=== PATIENT | male | born 1990 | race Two or more races ===

== ENCOUNTER 2019-02-03 09:53 | Inpatient (IN) | payer MEDICAID, OTHER ==
[~2019-02-03] VITALS: Ht 154.9 cm; Wt 63.1 kg
[2019-02-03] MEDS ORDERED: SODIUM CHLORIDE 0.9% 1,000 ML IVB ONE (12:10)
[2019-02-03] MEDS ORDERED: ONDANSETRON HCL 4 MG/2 ML VIAL IV ONE (12:45)
[2019-02-03 13:17] LABS: Magnesium 3.3 mg/dL (1.6-2.6)
[2019-02-03 13:20] LABS: Lactic Acid w/Reflex 5.2 mmol/L (0.4-2.0)
[2019-02-03 13:39] LABS: Basophils # (auto) 0.1 uL; Eosinophils # (auto) 0 uL; Lymphocytes # (auto) 1.1 uL; Monocytes % (auto) 4.5 % (0.0-12.0)
[2019-02-03 13:40] LABS: INR 0.96 (0.9-1.15); Prothrombin Time 10.3 sec (9.27-12.13)
[2019-02-03 13:41] LABS: Basophils % (auto) 0.3 % (0.0-2.0); Hematocrit 52.6 % (41.0-53.0); Hemoglobin 16.8 g/dL (13.5-17.5); Lymphocytes % (auto) 4.8 % (10.0-50.0); Mean Corpuscular Hgb Conc. 31.9 g/dL (32.0-36.0); Mean Corpuscular Volume 87.9 fL (80.0-100.0); Neutrophils # (auto) 19.9 uL; Neutrophils % (auto) 90.4 % (37.0-80.0); Nucleated Red Blood Cells % 0.1 %; Platelet Count (auto) 372 10^3/uL (140-450); Red Blood Cells 5.99 10^6/uL (4.5-5.90); Red Cell Distribution Width 14.5 % (11.8-14.3)
[2019-02-03 13:45] LABS: Urine Bacteria NONE SEEN /hpf (None Seen); Urine Blood TRACE /uL (Negative); Urine Mucus FEW (None Seen); Urine Specific Gravity 1.025 (1.001-1.035); Urine WBC 1 /hpf (0 - 3)
[2019-02-03 13:47] LABS: Calcium 9.1 mg/dL (8.5-10.1); Potassium 4.1 mmol/L (3.5-5.1)
[2019-02-03 13:54] LABS: Albumin 3.9 g/dL (3.4-5.0); BUN/Creatinine Ratio 15.5; Bilirubin, Total 0.8 mg/dL (0.2-1.0); Total Protein 8.9 g/dL (6.4-8.2)
[2019-02-03] MEDS ORDERED: cefTRIAXone 1GM/50ML D5W 50 ML IV ONE (14:00)
[2019-02-03] MEDS ORDERED: SODIUM CHLORIDE 0.9% 1,000 ML IV ONE ×2 (14:00)
[2019-02-03] MEDS ORDERED: InsuLIN R (HUMAN) 100 UNITS in SODIUM CHL 0.9% 99 ML IV SCH (14:05)
[2019-02-03] MEDS ORDERED: SODIUM BICARBONATE 8.4 % INJ 50ML VIAL IV ONE ×2 (14:15→17:45)
[2019-02-03] MEDS ORDERED: DEXTROSE (50%) 50ML SYRG IV PRN (14:15)
[2019-02-03 14:59] LABS: BUN/Creatinine Ratio 19.1; Calcium 7.8 mg/dL (8.5-10.1); Potassium 4.8 mmol/L (3.5-5.1)
[2019-02-03] MEDS: ACCU-CHEK COMFORT CURVE STRIP VI SCH ×6 (15:10→22:35)
[2019-02-03] MEDS: SODIUM CHLORIDE 0.9% 1,000 ML IV SCH ×3 (15:10→19:57)
[2019-02-03] MEDS: InsuLIN R (HUMAN) 100 UNITS in SODIUM CHL 0.9% 99 ML IV SCH (15:14)
[2019-02-03] MEDS ORDERED: NITROGLYCERIN 0.4 MG SL TAB SL PRN (17:00)
[2019-02-03] MEDS ORDERED: MORPHINE SULF INJ 2 MG/ML SYRINGE 1ML IV PRN ×2 (17:00)
[2019-02-03] MEDS ORDERED: ONDANSETRON HCL 4 MG/2 ML VIAL IV PRN (17:00)
[2019-02-03 17:40] LABS: Alcohol, Urine < 3.0 mg/dL (0-5); Amphetamine Screen, Urine NEGATIVE (NEGATIVE); Barbiturate Scree,Urine NEGATIVE (NEGATIVE); Benzodiazephine Screen, Urine NEGATIVE (NEGATIVE); Cannabinoid Screen, Urine NEGATIVE (NEGATIVE); Cocaine Screen, Urine NEGATIVE (NEGATIVE); Opiate Scree,Urine NEGATIVE (NEGATIVE); Phencyclidine Screen, Urine NEGATIVE (NEGATIVE)
[2019-02-03] MEDS: PIPERACILLIN-TAZOB 3.375GM 100 ML IV SCH (17:48)
[2019-02-03] MEDS ORDERED: SODIUM CHLORIDE 0.9% 1,000 ML IV SCH ×2 (18:05→20:05)
[2019-02-03 21:40] LABS: Magnesium 2.2 mg/dL (1.6-2.6)
[2019-02-03 21:41] LABS: Calcium 6.8 mg/dL (8.5-10.1); Potassium 3.3 mmol/L (3.5-5.1)
[2019-02-03 21:43] LABS: BUN/Creatinine Ratio 16.2
[2019-02-03 21:47] LABS: Phosphorus 0.8 mg/dL (2.5-4.90)
[2019-02-03] MEDS ORDERED: POTASSIUM PHOSPHATE 44 MEQ in D5W 5% 250 ML IV ONE (22:00)
[2019-02-04] MEDS: PIPERACILLIN-TAZOB 3.375GM 100 ML IV SCH ×4 (00:01→17:33)
[2019-02-04] MEDS: ACCU-CHEK COMFORT CURVE STRIP VI SCH ×10 (00:01→21:13)
[2019-02-04] MEDS: SODIUM CHLORIDE 0.9% 1,000 ML IV SCH (00:50)
[2019-02-04] MEDS: InsuLIN R (HUMAN) 100 UNITS in SODIUM CHL 0.9% 99 ML IV SCH (01:38)
[2019-02-04 04:39] LABS: Potassium 3.1 mmol/L (3.5-5.1)
[2019-02-04 04:44] LABS: BUN/Creatinine Ratio 13.1; Calcium 6.7 mg/dL (8.5-10.1)
[2019-02-04] MEDS ORDERED: DEXTROSE (50%) 50ML SYRG IV PRN (05:15)
[2019-02-04] MEDS ORDERED: POTASSIUM EFFERVESENT TAB 25 MEQ PO ONE (05:15)
[2019-02-04] MEDS ORDERED: INSULIN LANTUS (GLARGINE) 1 /0.01ml (100units/ml) SC ONE (05:15)
[2019-02-04] MEDS ORDERED: InsuLIN R (HUMAN) 100 UNITS in SODIUM CHL 0.9% 99 ML IV SCH (05:15)
[2019-02-04] MEDS: LACTATED RINGER'S 1,000 ML IV SCH ×3 (05:54→21:15)
[2019-02-04] MEDS: InsuLIN REG 1unit/0.01ml Soln (100units/ml) SC SCH ×4 (07:45→21:14)
[2019-02-04 10:46] LABS: Basophils # (auto) 0 uL; Basophils % (auto) 0.1 % (0.0-2.0); Eosinophils # (auto) 0 uL; Eosinophils % (auto) 0.2 % (0.0-7.0); Hemoglobin 13.5 g/dL (13.5-17.5); Lymphocytes # (auto) 1.1 uL; Lymphocytes % (auto) 8.5 % (10.0-50.0); Mean Corpuscular Hemoglobin 27.8 pg (28.0-32.0); Mean Corpuscular Hgb Conc. 34.6 g/dL (32.0-36.0); Mean Corpuscular Volume 80.4 fL (80.0-100.0); Monocytes % (auto) 7.9 % (0.0-12.0); Neutrophils # (auto) 10.8 uL; Neutrophils % (auto) 83.3 % (37.0-80.0); Platelet Count (auto) 196 10^3/uL (140-450); Red Blood Cells 4.85 10^6/uL (4.5-5.90)
[2019-02-04 10:50] LABS: Potassium 3.7 mmol/L (3.5-5.1)
[2019-02-04 10:59] LABS: Albumin 2.6 g/dL (3.4-5.0); BUN/Creatinine Ratio 13.9; Bilirubin, Total 0.7 mg/dL (0.2-1.0); Calcium 7.2 mg/dL (8.5-10.1)
[2019-02-04 11:06] LABS: Phosphorus 0.9 mg/dL (2.5-4.90)
[2019-02-04] MEDS ORDERED: ACETAMINOPHEN 325 MG TAB PO PRN (14:00)
--- NOTE | 2019-02-04 14:42 | NUR ---
opening arrival of the patient on the unit medsurg status
[2019-02-04 16:50] VITALS: BP 124/65
--- NOTE | 2019-02-04 19:15 | NUR ---
Opening Shift Note Assumed care of patient, awake and alert. No S/S of distress/SOB or pain. Instructed on POC and to call for assist PRN, will continue to monitor for changes Q1hr and PRN. Side rails up x2. Bed locked in lowest position. Call light within reach. at bedside.
[2019-02-04 22:00] VITALS: BP 131/78
[2019-02-05] MEDS: PIPERACILLIN-TAZOB 3.375GM 100 ML IV SCH ×2 (00:20→06:49)
[2019-02-05] MEDS: ACCU-CHEK COMFORT CURVE STRIP VI SCH ×5 (00:33→22:34)
[2019-02-05] MEDS: InsuLIN REG 1unit/0.01ml Soln (100units/ml) SC SCH ×4 (00:34→17:59)
[2019-02-05 05:30] VITALS: BP 117/65
[2019-02-05 06:09] LABS: Basophils # (auto) 0 uL; Basophils % (auto) 0.4 % (0.0-2.0); Eosinophils # (auto) 0.1 uL; Eosinophils % (auto) 1.5 % (0.0-7.0); Hematocrit 39.2 % (41.0-53.0); Hemoglobin 13.8 g/dL (13.5-17.5); Lymphocytes # (auto) 1.9 uL; Lymphocytes % (auto) 25.9 % (10.0-50.0); Mean Corpuscular Hemoglobin 28.3 pg (28.0-32.0); Mean Corpuscular Hgb Conc. 35.1 g/dL (32.0-36.0); Mean Corpuscular Volume 80.7 fL (80.0-100.0); Monocytes # (auto) 0.7 uL; Neutrophils # (auto) 4.5 uL; Neutrophils % (auto) 62.2 % (37.0-80.0); Nucleated Red Blood Cells % 0.2 %; Platelet Count (auto) 191 10^3/uL (140-450); Red Blood Cells 4.86 10^6/uL (4.5-5.90); Red Cell Distribution Width 13.7 % (11.8-14.3); White Blood Cell 7.2 10^3/uL (4.4-10.8)
[2019-02-05 06:37] LABS: BUN/Creatinine Ratio 12.9; Calcium 8.2 mg/dL (8.5-10.1); Magnesium 2.4 mg/dL (1.6-2.6); Phosphorus 1.9 mg/dL (2.5-4.90)
[2019-02-05] MEDS: LACTATED RINGER'S 1,000 ML IV SCH ×3 (06:49→21:40)
[2019-02-05] MEDS ORDERED: INSULIN LANTUS (GLARGINE) 1 /0.01ml (100units/ml) SC SCH ×2 (07:00→22:00)
--- NOTE | 2019-02-05 07:10 | NUR ---
Critical Potassium Spoke to truck engine technician MAIRA with patient critical result for potassium 2.8 Will endorsed to day shift RN.
[2019-02-05 07:11] LABS: Potassium 2.8 mmol/L (3.5-5.1)
--- NOTE | 2019-02-05 07:12 | NUR ---
Endorsed care to day shift RN. Patient in bed awake with no signs of distress.
[2019-02-05] MEDS ORDERED: POTASSIUM CHL 20 Meq TABLET PO ONE (07:30)
[2019-02-05 09:49] VITALS: BP 122/63
[2019-02-05] MEDS ORDERED: POTASSIUM PHOSPHATE 44 MEQ in D5W 5% 250 ML IV ONE (11:45)
[2019-02-05] MEDS ORDERED: DEXTROSE (50%) 50ML SYRG IV PRN (11:45)
[2019-02-05] MEDS ORDERED: ACCU-CHEK COMFORT CURVE STRIP VI ONE (12:30)
[2019-02-05] MEDS ORDERED: InsuLIN REG 1unit/0.01ml Soln (100units/ml) SC ONE (12:30)
[2019-02-05] MEDS: MAGNESIUM SULFATE 1GM/100ML 100 ML IV SCH ×2 (13:08→14:34)
[2019-02-05 17:01] VITALS: BP 127/66
--- NOTE | 2019-02-05 19:45 | NUR ---
RECEIVED PATIENT FROM DAY SHIFT RN. PATIENT RESTING IN BED. NO S/S OF DISTRESS NOTED. DENIED PAIN FOR NOW. POC INSTRUCTED AND ENCOURAGED PATIENT TO CALL FOR CHANNEL TURNER IF NEEDED. BED IN LOWEST POSITION WITH SIDE RAILS UP X 2. CALL GAN WITHIN REACH. CONTINUE TO MONITOR FOR CHANGES Q1H AND PRN.
[2019-02-05 22:00] VITALS: BP 143/79
[2019-02-05] MEDS ORDERED: InsuLIN REG 1unit/0.01ml Soln (100units/ml) SC SCH (22:00)
--- NOTE | 2019-02-05 22:40 | NUR ---
ACCU-CHECK, BS 300. INSULIN AND LANTUS GIVEN ORDERED. INSTRUCTED PATIENT ON S/S OF HYPOGLYCEMIA. AND CALL FOR TOP CARRIER IF NEEDED. PATIENT VERBALIZED UNDERSTANDING. CONTINUE TO MONITOR.
--- NOTE | 2019-02-06 02:30 | NUR ---
PATIENT SLEEPING. NO S/S OF DISTRESS NOTED. CONTINUE CARE.
[2019-02-06 05:42] VITALS: BP 140/84
[2019-02-06 05:55] VITALS: BP 103/61
[2019-02-06 06:14] LABS: Basophils # (auto) 0 uL; Basophils % (auto) 0.3 % (0.0-2.0); Eosinophils # (auto) 0.1 uL; Eosinophils % (auto) 2.2 % (0.0-7.0); Hematocrit 39.3 % (41.0-53.0); Hemoglobin 13.6 g/dL (13.5-17.5); Lymphocytes % (auto) 34.3 % (10.0-50.0); Mean Corpuscular Hemoglobin 27.8 pg (28.0-32.0); Mean Corpuscular Hgb Conc. 34.5 g/dL (32.0-36.0); Mean Corpuscular Volume 80.6 fL (80.0-100.0); Monocytes # (auto) 0.5 uL; Monocytes % (auto) 9.1 % (0.0-12.0); Neutrophils # (auto) 3.1 uL; Neutrophils % (auto) 54.1 % (37.0-80.0); Platelet Count (auto) 173 10^3/uL (140-450); Red Blood Cells 4.88 10^6/uL (4.5-5.90); Red Cell Distribution Width 13.7 % (11.8-14.3); White Blood Cell 5.7 10^3/uL (4.4-10.8)
[2019-02-06 06:36] LABS: Calcium 8.2 mg/dL (8.5-10.1); Magnesium 2.5 mg/dL (1.6-2.6); Potassium 3.4 mmol/L (3.5-5.1)
[2019-02-06] MEDS: ACCU-CHEK COMFORT CURVE STRIP VI SCH ×2 (06:40→12:19)
[2019-02-06] MEDS: InsuLIN REG 1unit/0.01ml Soln (100units/ml) SC SCH ×2 (06:40→12:19)
--- NOTE | 2019-02-06 06:40 | NUR ---
ACCU-CHECK, BS 163. INSULIN GIVEN ORDERED. CONTINUE TO MONITOR.
[2019-02-06 09:11] VITALS: BP 126/84
[2019-02-06] MEDS: LACTATED RINGER'S 1,000 ML IV SCH (10:07)
[2019-02-06] MEDS ORDERED: POTASSIUM CHL 20 Meq TABLET PO ONE (11:45)
--- NOTE | 2019-02-06 12:33 | NUR ---
Nutrition Consult Notes: Pt and family edu on diabetic diet oral and written communication provided. family and pt verbalized understanding.
[2019-02-06 13:43] VITALS: BP 136/95
--- NOTE | 2019-02-06 14:59 | NUR ---
Discharge instructions given as ordered. Encourage to follow up with PMD as instructed. All questions and concerns addressed. Patient verbalized understanding. Medication reconciliation form completed and copy given to patient. IV Removed with catheter intact, pressure dressing applied, leon catheter removed. Telemetry unit returned to ICU. Patient taken to vehicle via wheelchair with all personal belongings, accompanied by staff and family member. No distress noted at time of departure.
== END 2019-02-06 14:59 | disposition home or self-care (01) | DRG 720 ==
LOC: ER 09:57 → OVERFLOW 14:20 → WEST WING 02-04 15:09
PROVIDERS: ADMIT Nurse Practitioner Acute Care; ATTEND Internal Medicine
DX: A41.9 Sepsis, unspecified organism (principal); N17.0 Acute kidney failure with tubular necrosis; K85.80 Other acute pancreatitis without necrosis or infection; E11.10 Type 2 diabetes mellitus with ketoacidosis without coma; E83.51 Hypocalcemia; E87.1 Hypo-osmolality and hyponatremia; K76.0 Fatty (change of) liver, not elsewhere classified; G80.9 Cerebral palsy, unspecified; E87.8 Other disorders of electrolyte and fluid balance, not elsewhere classified; E66.9 Obesity, unspecified; E87.6 Hypokalemia; E83.42 Hypomagnesemia; Z79.4 Long term (current) use of insulin; Z68.26 Body mass index [BMI] 26.0-26.9, adult
CPT/HCPCS: 36415; 36600; 71046; 74176; 80048; 80053; 80061; 80307; 81001; 82150; 82805; 82962; 83036; 83605; 83690; 83735; 84100; 85025; 85610; 85730; 87040; G0378; J0696; J1815; J2405; J2543; J7060